=== PATIENT | female | born 1950 | race Caucasian/White ===

== ENCOUNTER 2025-03-31 12:12 | Emergency (ER) | payer MEDICARE ==
[~2025-03-31] VITALS: Ht 162.6 cm; Wt 52.2 kg
--- NOTE | 2025-03-31 12:36 | ELECTROCARDIOGRAPH REPORT ---
[facility] Test Date: 2025-03-31 Test Time: 12:19:23 Pat Name: KAYDEN RAMESH Department: EMERGENCY ROOM Room: Gender: F Produce Team Member: PAM : 1950 Requested By: JUAN DIEGO CALVO Order Number: [id number] Reading MD: Dr. Lele Sales Measurements Intervals [place] Rate: 71 P: 43 KS: 150 QRS: 19 QRSD: 84 T: 56 QT: 408 QTc: 444 Interpretive Statements Sinus rhythm Atrial premature complexes Probable left atrial enlargement Electronically Signed On 04-01-2025 18:24:[address] Lele Sales Please click the below link to view image of tracing.
--- NOTE | 2025-03-31 12:52 | Physician Documentation ---
History of Present Illness ~ Chief Complaint: Dizziness Stated Complaint: DIZZINESS Time Seen by MD: 13:03 HPI This is a 74-year-old female who presents with feeling of imbalance onset after standing up suddenly, patient reports attempts to get worse with movement. 74-year-old female patient who is from [place] who has been traveling and camping for about one week and they were at [facility] yesterday and then up in the higher altitude when she tried to look down she felt dizzy. However she made it to the [place]. As she got up this morning she was fine, at the breakfast time, she was fine and then about 07/05/2010 she started feeling dizzy . It comes in waves. Is a weird sensation. A little bit difficulty with balancing. A bit wobbly. Denies headaches. The patient does not endorse chest pain abdominal pain nausea vomiting. Her hearing and vision are about the same. She has history of hiatal hernia and she takes Pepcid regularly. No other medications. She was told she is allergic to penicillin but unknown reaction. Nonsmoker and casual drinker. No drug usage. Medication Reconciliation Allergies: Coded Allergies: Penicillins (Verified Allergy, Unknown, unknown, 03/31/25) Scheduled Meclizine Hcl (Meclizine Hcl), 1 TAB PO Q8H Scheduled PRN ONDANSETRON ODT 4mg tablet (Ondansetron Odt), 1 TAB PO Q6H PRN PRN for nausea/vomiting Review of Systems ROS As stated above in the HPI, otherwise all systems are reviewed and negative. Physical Exam Vital Signs: Temperature: 97.9, Source: Oral, Heart Rate: 95, Respiratory Rate: 16, BP: 193/92, Pulse Oximetry: 98, Weight: 52.180 Oxygen Flow Rate: 0 Physical Exam VITALS: Reviewed and as above. GENERAL: Alert, nontoxic appearing, no apparent distress. HEENT: RESPIRATORY: No increased work of breathing, no respiratory distress, speaking in full clear sentences Vital signs reviewed and they are well within normal range. Const: Not in acute cardiopulmonary distress, patient does have kyphosis. Head: Atraumatic Eyes: Normal Conjunctiva, EWELINA EOMI. No vertical nystagmus. Questionable horizontal nystagmus left eye ENT: Normal External Ears, Nose and Mouth. Moist mucous membranes. Neck: Full range of motion. No meningismus Resp: Clear to auscultation bilaterally. Normal work of breathing Cardio: Regular rate and rhythm, no murmurs. Skin well perfused Abd: Soft, non-tender, non-distended. Normal bowel sounds. No rebound or guarding Skin: No petechiae or rashes. Warm and dry Back: No midline or flank tenderness Ext: No cyanosis, or edema Neuro: Awake and alert GCS 15/15 no focal deficit normal coordination normal Romberg test and her gait is normal. Psych: Normal Mood and Affect Progress Results/Orders Results/Orders Completed Orders - ROLY ALVARADO MD Meclizine Tablets (Antivert Tablet) (03/31/25 14:10) Vital Signs 03/31/25 03/31/25 03/31/25 03/31/25 12:20 13:16 13:18 14:19 Temp 97.9 97.9 97.9 Pulse 95 70 63 Resp 16 18 12 18 B/P (MAP) 193/92 151/76 (101) 154/64 Pulse Ox 98 98 99 O2 Flow Rate 0 0 Laboratory Tests Test 03/31/25 12:54 White Blood Count 7.6 Red Blood Count 4.84 Hemoglobin 13.9 Hematocrit 41.1 Mean Corpuscular Volume 84.7 Mean Corpuscular Hemoglobin 28.6 Mean Corpuscular Hemoglobin Concent 33.8 Red Cell Distribution Width 15.1 H Platelet Count 364 Mean Platelet Volume 6.9 L Neutrophils (%) (Auto) 74.0 Lymphocytes (%) (Auto) 17.1 L Monocytes (%) (Auto) 7.3 Eosinophils (%) (Auto) 1.0 Basophils (%) (Auto) 0.6 Neutrophils # (Auto) 5.7 Lymphocytes # (Auto) 1.3 Monocytes # (Auto) 0.6 Eosinophils # (Auto) 0.1 Basophils # (Auto) 0.0 CBC Comment Sodium Level 137 Potassium Level 3.7 Chloride Level 101 Carbon Dioxide Level 26.9 Anion Gap 9 Blood Urea Nitrogen 10 Creatinine 0.64 Estimated GFR/1.73 m2 > 90 BUN/Creatinine Ratio 15.6 Glucose Level 91 Calcium Level 9.1 Troponin I High Sensitivity 7 Pro-B-Type Natriuretic Peptide 138 H Albumin 4.0 Chemistry Comments Medical Decision Making Findings During the physical examination, the findings suggestive of acute life- threatening condition such as JVD, tracheal deviation, acidotic breathing, noisy stridorous breath sounds, pulses paradoxus, muffled heart sounds, unequal breath sounds, abdominal rigidity and rebound tenderness, focal neurological deficits, cool clammy skin, severe hypotension, severe tachycardia or bradycardia are abs ent. I do not detect any neurological deficit and the patient does not have have any neighboring signs and symptoms and Romberg and posterior column Signs are normal. Head CT scan is negative as well as chest x-ray. EKG done 12:19 hours shows normal sinus rhythm at a rate of 71 with PAC and left axis deviation. Normal intervals no acute ischemic changes. CBC CMP are well within normal range. I do not really think patient has central lesions or central pathology at this time. I will discharge her home with meclizine, metoclopramide and small dose of Ativan for now. I think is probably altitude related dizziness. However, for considering the possibility of more sinister differential diagnosis no unlikely she needs to follow up with her primary care provider as soon as she get back to [place]. DISCLAIMER Inadvertent spelling and grammatical errors,inadvertent community health education coordinator err ors,syntax errors, grammatical errors, and spelling errors are likely due to EMR/dictation software use and do not reflect on the overall quality of patient care. Note that the electronic time recorded on this note does not necessarily reflect the actual time of the patient encounter. Departure Disposition: 01 HOME / SELF CARE / HOMELESS Impression: Primary Impression: Dizziness Condition: Stable Discharge Instructions: Dizziness Additional Instructions: Thank you for coming to our Emergency Department today. When you get home please see your primary care provider as soon as possible, also should you have any more dizziness unsteadiness despite taking medication go to the nearest emergency room as soon as possible. Please ask your nurse or provider if you have questions about your care today and do not leave until all your questions have been answered. Please use any medications given as directed and follow-up with your doctor (or the doctor you were referred to) in the next 1-3 days. Your primary care doctor can help to coordinate outpatient specialty care and provide authorization for specialty referral as needed. If you do not have a primary care doctor you may follow up at a [facility]. You may also use motrin and tylenol as needed for fever and/or pain unless instructed otherwise by your provider or nurse. Indications for more urgent follow-up have been discussed, but you may return to the Emergency Department at ANY time for any worrisome or worsening symptoms. Referrals: NO PRIMARY CARE PROVIDER (PCP) Prescriptions Meclizine Hcl (MECLIZINE HCL) 12.5 Mg Tablet 1 TAB PO Q8H, #30 TAB 0 Refills Prov: ROLY ALVARADO MD 03/31/25 ONDANSETRON ODT 4mg tablet (ONDANSETRON ODT) 4 Mg Tab.rapdis 1 TAB PO Q6H PRN PRN for nausea/vomiting for 4 Days, #16 TAB 0 Refills Prov: ROLY ALVARADO MD 03/31/25 Signature Scribe Signature: None Attestation: My dictation JUAN DIEGO CALVOP Mar 31, 2025 12:52 ROLY ALVARADO MD Mar 31, 2025 13:51
--- NOTE | 2025-03-31 12:53 | RADIOLOGY REPORT ---
EXAM: DI CHEST,SINGLE VIEW Indication: CP Technique: Single frontal view of the chest was obtained Comparison: None FINDINGS: Lines and Tubes: None Lungs: No focal consolidation. Pleura: No effusion. No pneumothorax. Cardiomediastinal contours: Unremarkable. Suggestion of large hiatal hernia. Bones: No acute osseous abnormality. IMPRESSION: Suggestion of large hiatal hernia.No acute cardiopulmonary disease.
--- NOTE | 2025-03-31 13:03 | RADIOLOGY REPORT ---
EXAM: CT CT HEAD INDICATION: dizziness,high bp TECHNIQUE: CT of the head without intravenous contrast. Radiation Dose : 1. Head: CT Dose: CTDI volume is 48 mGy. Dose-length product is 838 mGy*cm The dose indicators for CT are the volume Computed Tomography (CT) Dose Index (CTDIvol) and the Dose Length Product (DLP), and are measured in units of mGy and mGy-cm, respectively. These indicators are not patient dose, but values generated from the CT scanner acquisition factors. The report includes radiation exposure data for exposures received during this examination. COMPARISON: None FINDINGS: There is no evidence of acute intracranial hemorrhage, extra-axial collection, mass effect, midline s hift, herniation or hydrocephalus. The ventricles, sulci and cisterns are age appropriate. The duque-white differentiation is intact. Patchy periventricular and subcortical white matter hypoattenuation is nonspecific but may be related to small vessel ischemic disease. The visualized paranasal sinuses and mastoid air cells are clear. The surrounding soft tissues and osseous structures are unremarkable. IMPRESSION: No acute intracranial abnormality. Radiation optimization: All CT scans at this facility use at least one of these dose optimization peri hniques: automated exposure control mA and/or kV adjustment per patient size (includes targeted exam s where dose is matched to clinical indication) or iterative reconstruction.
[2025-03-31 13:15] LABS: BASOPHILS % (AUTO) 0.6 % (0-1); EOSINOPHILS # (AUTO) 0.1 X10'3 (0-0.9); HEMATOCRIT 41.1 % (35.0-45.0); HEMOGLOBIN 13.9 g/dl (12.0-16.0); LYMPHOCYTES # (AUTO) 1.3 X10'3 (1.1-4.8); LYMPHOCYTES % (AUTO) 17.1 % (21-51); MEAN CORPUSCULAR HEMOGLOBIN 28.6 PG (27.0-31.0); MEAN CORPUSCULAR HGB CONC 33.8 g/dL (33.0-36.5); MEAN CORPUSCULAR VOLUME 84.7 FL (78-98); MEAN PLATELET VOLUME 6.9 FL (7.4-10.4); MONOCYTES # (AUTO) 0.6 X10'3 (0-0.9); MONOCYTES % (AUTO) 7.3 % (2-12); NEUTROPHILS # (AUTO) 5.7 X10'3 (1.8-7.7); PLATELET COUNT 364 X10'3 (140-440); RED BLOOD COUNT 4.84 X10'6 (4.20-5.60); RED CELL DISTRIBUTION WIDTH 15.1 % (11.5-14.5); WHITE BLOOD COUNT 7.6 X10'3 (4.5-11.0)
[2025-03-31 13:50] LABS: ANION GAP 9 (8-16); BLOOD UREA NITROGEN 10 MG/DL (7-18); BUN/CREATININE RATIO 15.6 (10.0-20.0); CALCIUM 9.1 MG/DL (8.5-10.1); CHLORIDE 101 MMOL/L (99-107); CREATININE 0.64 MG/DL (0.40-0.90); GLUCOSE 91 MG/DL (70-104); POTASSIUM 3.7 MMOL/L (3.5-5.1); PRO BRAIN NATRIURETIC PEPTIDE 138 PG/ML (0-125); SODIUM 137 MMOL/L (135-145); TOTAL CARBON DIOXIDE 26.9 MMOL/L (24-32); eCRCL 64 ML/MIN; eGFR > 90 ML/MIN
[2025-03-31] MEDS ORDERED: MECL-231 PO (14:05)
[2025-03-31] MEDS ORDERED: ONDA-243 PO (14:05)
[2025-03-31] MEDS: meclizine 12.5mg tablet PO ONE (14:09)
[2025-03-31 14:19] VITALS: BP 154/64; PULSE 63; RESP 18; TEMP 97.9; O2SAT 99
== END 2025-03-31 14:20 | disposition home or self-care (01) ==
LOC: ER 12:15
DX: R42 Dizziness and giddiness (principal); Z88.0 Allergy status to penicillin; Z79.899 Other long term (current) drug therapy
CPT/HCPCS: 36415; 70450; 71045; 80048; 83880; 84484; 85025; 93005; 99285; J8597